=== PATIENT | female | born 1980 | race Caucasian/White ===

== ENCOUNTER 2020-06-10 16:50 | Outpatient (CLI) | payer OTHER, SELFPAY ==
[2020-06-10 17:31] LABS: Basophils Percent Auto 0.5 % (0.2-1.2); Eosinophils Absolute Auto 0.2 K/mm3 (0-0.3); Eosinophils Percent Auto 3.5 % (0-4.4); Hematocrit 38.2 % (37.0-47.0); Hemoglobin 12.6 g/dL (12.0-15.0); Immature Granulocyte Absolute 0.01 K/mm3 (0.00-0.031); Immature Granulocyte Percent A 0.2 % (0-0.5); Lymphocytes Absolute Auto 1.74 K/mm3 (0.9-3.2); Lymphocytes Percent Auto 28.1 % (18.3-44.2); Mean Corpuscular Hemoglobin 30.1 pg (26-34); Mean Corpuscular Volume 91.4 fl (80-100); Mean Platelet Volume 9.6 fl (7.4-10.4); Monocytes Absolute Auto 0.5 K/mm3 (0.1-0.6); Monocytes Percent Auto 8.4 % (2.6-8.5); Neutrophils Absolute Auto 3.7 K/mm3 (1.3-6.7); Neutrophils Percent Auto 59.3 % (45.5-73.1); Platelet Count Result 264 k/mm3 (150-375); Red Blood Count 4.18 M/mm3 (4.2-5.4); Red Cell Distribution Width 12.5 % (11.5-14.5); White Blood Count 6.2 K/mm3 (4.5-10.0)
[2020-06-10 17:37] LABS: Add Urine Microscopic? YES; Appearance Urine Cloudy (Clear); Bacteria Urine 4+ /hpf; Bilirubin Urine Negative (Negative); Blood Urine 3+ (Negative); Color Urine Yellow (Yellow); Glucose Urine UA Negative (Negative); Ketones Urine Negative (Negative); Leukocyte Esterase Ur 2+ LEU/UL (NEGATIVE); Mucus Urine Rare /lpf; Nitrate Urine Negative (Negative); Protein Urine Negative (Negative); Specific Grav Ur 1.015 (1.001-1.035); Squamous Epithelial Cell Urine Many /hpf (Few); Urobilinogen Urine Negative mg/dL (<2.0); WBC Urine 21-30 /hpf (0-3)
[2020-06-10 19:30] LABS: Hepatitis B Surface Antigen Negative (Negative); Rubella IgG Antibody 10.5 IU/ML
[2020-06-10 19:45] LABS: Hepatitis C Virus Antibody Negative (Negative)
[2020-06-10 20:29] LABS: Vitamin D 25 Hydroxy 42.4 ng/mL
[2020-06-11 09:03] LABS: Rapid Plasma Reagin Non-Reactive (NonReactive)
[2020-06-17 04:03] LABS: Hematocrit 41.8 % (35.0-45.0); Hemoglobin 12.9 g/dL (11.7-15.5); MCH 30.6 pg (27.0-33.0); MCV 99.3 FL (80.0-100.0); RDW 14.9 % (11.0-15.0); Red Blood Cell Count 4.21 Mill/uL (3.80-5.10)
[2020-06-23 18:27] LABS: CF Result NEGATIVE (NEGATIVE)
== END 2020-06-10 16:51 | disposition home or self-care (01) ==
LOC: ANHLAB 16:55
PROVIDERS: Visit Provider Student in an Organized Health Care Education/Training Program
DX: Z34.90 Encounter for supervision of normal pregnancy, unspecified, unspecified trimester (principal); N91.2 Amenorrhea, unspecified
CPT/HCPCS: 36415; 81001; 81220; 82306; 83021; 84144; 84443; 85025; 86592; 86762; 86787; 86803; 86850; 86900; 86901; 87086; 87340

== ENCOUNTER 2020-06-15 09:54 | Outpatient (CLI) | payer OTHER, SELFPAY ==
--- NOTE | ~2020-06-15 | US_ITS ---
EXAMINATION: US OB <=14 wk fetus w TV DATE: 06/15/2020 10:19 INDICATION: Gestational dating TECHNIQUE: Real-time transabdominal and transvaginal obstetric ultrasound. FINDINGS: No prior studies for comparison. The uterus measures 9.1 x 5.3 x 5.5 cm. There is an intrauterine gestational sac, with pole caitlyn ntified. The crown rump length measures 0.49 cm, which correlates with a estimated gestational age o f 6 weeks 1 day. heart tones are identified measuring 121 bpm. Right ovary is normal measurin g 4.2 x 1.6 x 2 cm. Left ovary measures 3.3 x 2.9 x 2.7 cm. There is a 2.5 cm left ovarian cyst. IMPRESSION: 1. SL IUP with an EGA of 6 weeks, 1 days (EDC by current ultrasound of 02/07/2021). 2: 2.5 cm corpus luteal cyst of the left ovary. Reviewed, dictated and finalized at location A. IMPRESSION: 1. SL IUP with an EGA of 6 weeks, 1 days (EDC by current ultrasound of ). 2: 2.5 cm corpus luteal cyst of the left ovary.
== END 2020-06-15 09:55 | disposition home or self-care (01) ==
PROVIDERS: PCP Student in an Organized Health Care Education/Training Program; Visit Provider Student in an Organized Health Care Education/Training Program
DX: Z34.90 Encounter for supervision of normal pregnancy, unspecified, unspecified trimester (principal); Z3A.01 Less than 8 weeks gestation of pregnancy; N83.12 Corpus luteum cyst of left ovary
CPT/HCPCS: 76801; 76817

== ENCOUNTER 2020-06-23 13:03 | Outpatient (CLI) | payer OTHER, SELFPAY ==
--- NOTE | ~2020-06-23 | US_ITS ---
EXAMINATION: US OB <=14 wk fetus w TV DATE: 06/23/2020 14:06 INDICATION: Supervision of normal during first trimester TECHNIQUE: Real-time pelvic ultrasound utilizing both a transvaginal and transabdominal probe was pe rformed. The interpreting radiologist was not present for the study. COMPARISON: 06/15/2020 FINDINGS: The uterus measures 10.6 x 5.7 x 4.3 cm. There is an intrauterine gestational sac. A yolk sac and fe [place] pole are identified. The crown rump length measures 4 mm, which correlates with an estimated gest ational age of 6 weeks and 1 days. heart motion is identified measuring 89 beats per minute (bp m) by M-mode Doppler. 2.9 x 2.8 x 0.9 cm hypoechoic likely subchorionic hematoma along the caudal mar gin of the right inferior margin of the gestational sac. The right ovary measures 4.2 x 2.0 x 2.1 cm. The left ovary measures 2.8 x 2.9 x 2.8 cm. 2.6 cm anech oic left ovarian cyst. Vascular flow identified on color Doppler both ovaries. There is no free fluid in the pelvis. IMPRESSION: 1. Single living fetus with heart rate of 89 bpm. 2. Artemus-rump length of 4 mm yielding estimated gestational age by ultrasound of 6 weeks 1 day(s) +/- 4 day(s) with ultrasound estimated date of delivery (SANDRA) of 02/15/2021. This is discordant with the prior ultrasound estimated date of delivery of 02/07/2021. 3. Subchorionic hematoma measuring 2.9 x 2.8 x 0.9 Reviewed, dictated and finalized at location A. IMPRESSION: 1. Single living fetus with heart rate of 89 bpm. 2. Artemus-rump length of 4 mm yielding estimated gestational age by ultrasound o f 6 weeks 1 day(s) +/- 4 day(s) with ultrasound estimated date of delivery (SANDRA ) of 02/15/2021. This is discordant with the prior ultrasound estimated date of delivery of 02/07/2021. 3. Subchorionic hematoma measuring 2.9 x 2.8 x 0.9
--- NOTE | ~2020-06-23 | US_ITS ---
EXAMINATION: US breast RT limited HISTORY: Palpable lump in the upper outer quadrant of the right breast TECHNIQUE: Limited right breast ultrasound is performed in the area of clinical concern. FINDINGS: There is a 3 mm cyst at the 11:00 location 5 cm from the nipple. Dense breast tissue is not ed in the area of clinical concern. No suspicious cystic or solid mass is identified. IMPRESSION: No suspicious sonographic correlate is identified for the reported palpable abnormality of concern. F urther evaluation at this time should be based on clinical assessment. Continued follow-up physical e xamination is recommended. BI-RADS Category 2: Benign finding(s). Reviewed, dictated and finalized at location A. IMPRESSION: No suspicious sonographic correlate is identified for the reported palpable abn ormality of concern. Further evaluation at this time should be based on clinica l assessment. Continued follow-up physical examination is recommended. BI-RADS Category 2: Benign finding(s).
== END 2020-06-23 13:04 | disposition home or self-care (01) ==
PROVIDERS: Visit Provider Student in an Organized Health Care Education/Training Program
DX: Z34.90 Encounter for supervision of normal pregnancy, unspecified, unspecified trimester (principal); N63.11 Unspecified lump in the right breast, upper outer quadrant
CPT/HCPCS: 76642; 76801; 76817

== ENCOUNTER 2020-06-30 08:10 | Outpatient (CLI) | payer OTHER, SELFPAY ==
--- NOTE | ~2020-06-30 | US_ITS ---
EXAMINATION: US OB <=14 wk fetus w TV DATE: 06/30/2020 08:47 INDICATION: Threatened TECHNIQUE: Real-time pelvic transabdominal and transvaginal ultrasound was performed. COMPARISON: 06/23/2020 FINDINGS: The uterus measures 8.2 x 4.8 cm. There is an intrauterine gestational sac. A yolk sac is identified. heart motion is identified measuring 123 beats per minute (bpm) by M-mode Doppler. The crown rump length measures 5 mm , which correlates with an estimated gestational age of 6 w eeks and 1 day(s) (+/-) 4 day(s). The right ovary measures 2.7 x 1.4 cm. The left ovary measures 2.7 x 2.8 cm and contains a cyst or co rpus luteum. There is no free fluid in the pelvis. IMPRESSION: 1. Live intrauterine with an estimated gestational age of 6 weeks and 1 day(s) (+/-) 4 day( s) and an estimated delivery date of 02/22/2021. Of note, crown-rump length one week ago was 4 mm and y ielded the same estimated gestational age. Reviewed, dictated and finalized at location A. IMPRESSION: 1. Live intrauterine with an estimated gestational age of 6 weeks and 1 day(s) (+/-) 4 day(s) and an estimated delivery date of 02/22/2021. Of note, c rown-rump length one week ago was 4 mm and yielded the same estimated gestation al age.
== END 2020-06-30 08:11 | disposition home or self-care (01) ==
PROVIDERS: Visit Provider Student in an Organized Health Care Education/Training Program
DX: O20.0 Threatened abortion (principal); Z3A.01 Less than 8 weeks gestation of pregnancy
CPT/HCPCS: 76801; 76817

== ENCOUNTER 2020-07-09 01:55 | Day surgery (SDC) | payer OTHER, SELFPAY ==
[2020-07-08 12:55] VITALS: BMI 31.9
--- NOTE | 2020-07-09 08:03 | PM.IMHP ---
H&P: HPI History of Present Illness Date/Time: 07/09/20 08:03 The patient is a 40 year old LMP 04/17/20 who was diagnosed with a missed measuring 6 week size on 07/08/20. Management options were discussed with patient including expectant, medical, and surgical. Patient desires surgical management. She reports feeling well today without complaints. Denies any bleeding or cramping. Chief complaint: Missed Narrative: Oscar Adams is a 40 year old female Review of Systems Review of Systems: All systems reviewed & are unremarkable except as noted in HPI and below Constitutional: Constitutional: Reports as per HPI, Reports no additional constitutional complaints, Denies chills, Denies fever(s), Denies headache(s) and Denies night sweats Eyes: Eyes: Reports as per HPI and Reports no additional eye complaints ENT: Reports system reviewed and no additional complaints, except as documented, Reports as per HPI, Reports Normal hearing present and Denies headache(s) Cardiovascular: Cardiovascular: Reports as per HPI, Reports no additional cardiovascular complaints, Denies chest pain and Denies dyspnea Respiratory: Respiratory: Reports as per HPI, Reports no additional respiratory complaints, Denies cough and Denies dyspnea Gastrointestinal: Gastrointestinal: Reports as per HPI, Reports no additional gastrointestinal complaints, Denies abdominal pain, Denies change in bowel habits, Denies change in stool character, Denies nausea and Denies vomiting Genitourinary: Genitourinary: Reports no additional female genitourinary complaints, Reports as per HPI, Denies abnormal vaginal bleeding, Denies genital lesions, Denies hot flashes, Denies dyspareunia, Denies pelvic pain, Denies sexual dysfunction, Denies urinary incontinence, Denies vaginal discharge, Denies vaginal dryness and Denies vaginal odor Musculoskeletal: Musculoskeletal: Reports no additional musculoskeletal complaints and Reports as per HPI Integumentary/Breasts: Skin/Breast: Reports system reviewed and no additional complaints, except as docu, Reports as per HPI, Denies breast pain and Denies nipple discharge Neurologic: Reports system reviewed and no additional complaints, except as documented, Reports as per HPI, Reports Normal hearing present and Denies headache(s) Psychiatric: Psychiatric: Reports no additional psychiatric complaints, Reports as per HPI, Denies anxiety and Denies depression Endocrine: Endocrine: Reports no additional endocrine complaints and Reports as per HPI Hematologic/Lymphatic: Hematologic/Lymphatic: Reports no additional hematologic/lymphatic complaints and Reports as per HPI Allergic/Immunologic: Allergic/Immunologic: Reports no additional allergic/immunologic complaints and Reports as per HPI PMFSH Past Medical History Medical History Arthritis, rheumatoid ASCUS of cervix with negative high risk HPV Cutaneous lupus erythematosus Depression Lichen planopilaris Surgical History Surgical History History of colposcopy [place] teeth removed Family History Family History Mother Diabetes mellitus Hypertension Hyperlipidemia Grandparent Diabetes mellitus Acute myocardial infarction Cerebrovascular accident Other Diabetes mellitus Cerebrovascular accident Social History Social History Smoking status: Never smoker Alcohol intake: former Substance use: never Spiritual care concerns: No Meds Home Medications and Allergies Home Medications Medication Instructions Recorded Confirmed Type abatacept 125 mg/mL subcutaneous 125 mg SUB-Q WEEKLY 06/10/20 07/09/20 History syringe hydroxychloroquine 200 mg tablet 200 mg PO DAILY 06/10/20 07/09/20 History prenat.vits,rosemary,ken-caol-ipabx 1 tablet P
[2020-07-09 11:55] VITALS: BP 123/63; PULSE 78; RESP 18; TEMP 37.2; O2SAT 100
[2020-07-09] MEDS: LACTATED RINGERS 1,000 ML 30 ML IV CONT ×3 (12:22→14:20)
[2020-07-09] MEDS: ACETAMINOPHEN 500 MG TABLET 1000 MG PO (12:28)
[2020-07-09 12:35] VITALS: BMI 37.3
--- NOTE | 2020-07-09 12:45 | P.PNAN_ITS ---
Anes - Initial Pre Proc Eval Procedure: Operation Date: 07/09/20 13:30 Proposed Procedures p Suction Dilation and Curettage - Nery Lua MD Date/Time: 07/09/20 12:45 Surgeon: Nery Lua MD Pre Op Diagnosis: Missed Patient Data Age: 40 Gender: F Height: 5 ft 8 in Weight: 111.2 kg Last Vital Signs Temp 37.2 C 07/09/20 11:55 Pulse 78 07/09/20 11:55 Resp 18 07/09/20 11:55 BP 123/63 07/09/20 11:55 Pulse Ox 100 07/09/20 11:55 Allergies Allergy/AdvReac Type Severity Reaction Status Date / Time No Known Allergies Allergy Verified 07/09/20 11:54 Home Medications Medication Instructions Recorded Confirmed Type abatacept 125 mg/mL subcutaneous 125 mg SUB-Q WEEKLY 06/10/20 07/09/20 History syringe hydroxychloroquine 200 mg tablet 200 mg PO DAILY 06/10/20 07/09/20 History prenat.vits,rosemary,sye-dnbf-ihnes 1 tablet PO DAILY 06/10/20 07/09/20 History Laboratory Tests 07/09/20 12:17 Beta HCG, Quant Pending Patient hx anesthesia problems: none Family hx anesthesia problems: none PMFSH Past Medical History Medical History Arthritis, rheumatoid ASCUS of cervix with negative high risk HPV Cutaneous lupus erythematosus Depression Lichen planopilaris Surgical History Surgical History History of colposcopy [place] teeth removed Family History Family History Mother Diabetes mellitus Hypertension Hyperlipidemia Grandparent Diabetes mellitus Acute myocardial infarction Cerebrovascular accident Other Diabetes mellitus Cerebrovascular accident Social History Social History Smoking status: Never smoker Alcohol intake: former Substance use: never Spiritual care concerns: No Anes - Eval Final PreProcedure Day of Procedure 07/09/20 12:45 Patient weight: obese Heart: regular rate and rhythm Lungs: clear to auscultation Airway: Mallampati scale class II Neurological: alert and oriented Last oral intake: >/= 8 hours ASA classification: II Emergent: no Anesthetic plan: proceed Anesthesia type and monitoring: general GIVS and standard monitoring Informed Consent: The patient's anesthetic plan and its attendant risks and benefits were discussed with the patient/family/POA. Questions were solicited and answers provided to the satisfaction of the patient/family/POA.
--- NOTE | 2020-07-09 13:13 | WPDHPUPDATE1 ---
History and Physical Update Update Date/Time: 07/09/20 13:13 History and Physical has been reviewed, including an updated exam of the patient. There are NO changes in the patient's condition. Risks, benefits, and alternatives have been discussed and questions answered. Patient agrees to proceed with procedure.
--- NOTE | 2020-07-09 13:41 | SUR.PREOP ---
1145; spouse in room with pt
[2020-07-09 13:57] VITALS: BP 145/71; PULSE 91; RESP 20; O2SAT 99
--- NOTE | 2020-07-09 14:02 | PM.PROC ---
Procedure Note - Detailed Date of procedure: 07/09/20 Pre-op diagnosis: Missed Post-op diagnosis: same Procedure performed: The patient was taken to the operating room where she self transferred to the operating room table. Patient was placed in dorsal supine position. Anesthesia was administered and found to be adequate. The patient was repositioned in dorsal lithotomy position with the use of Shaun stirrups. The patient was prepped and draped in the usual sterile fashion. A red rubber catheter was used to drain the bladder of 100 cc of yellow urine. A bivalve speculum was inserted into vagina. The cervix was well visualized. The anterior lip of the cervix was grasped with a single-tooth tenaculum. A paracervical block was performed with 1% lidocaine. 5 cc of lidocaine was administered on both sides for a total of 10 cc. The cervix was then serially dilated to accommodate a size 7 rigid curette. The curette was introduced into the endometrial cavity and connected to the suction tubing. The suction aspirator was then activated and the curette was gently rotated clearing the cavity of all products of conception. Three passes with the rigid curette were made. A Fernandez curette was then introduced into the endometrial cavity and all quadrants of the cavity were explored. A gritty texture was noted and the procedure was deemed complete. The tenaculum was removed. The tenaculum puncture sites were noted to be moderately bleeding. These sites were made hemostatic with two figure of eight sutures using 3-0 vicryl. Excellent hemostasis was noted. The vagina was then cleansed and dried and the speculum was removed. The remainder the patient was cleansed and dried. She was taken out of the dorsal lithotomy position and awakened from anesthesia without difficulty. She was transferred to recovery room in stable condition. All sponge and instrument counts were correct at the end of the procedure. The evacuated uterine contents were inspected and prepared to be sent to pathology for chromosome analysis. The patient tolerated the procedure well. Anesthesia: MAC Surgeon: Nery Lua MD Estimated blood loss (mL): 20 IV fluids (mL): 700 Urine output (mL): 100 Drains: No Packing: No Pathology: yes (products of conception) Complications: No immediate complications Condition: stable Disposition: same day Findings: Intraoperative findings: minimal amount of products of conception
[2020-07-09 14:25] VITALS: BP 137/67; PULSE 83; RESP 20; O2SAT 100
[2020-07-09] MEDS: RHO(D) IMMUNE GLOBULIN 300 MCG SYRINGE IM (14:54)
== END 2020-07-09 15:05 | disposition home or self-care (01) ==
PROVIDERS: Visit Provider Student in an Organized Health Care Education/Training Program
PROC: (CPT 59820; principal; 2020-07-09 13:30)
DX: O02.1 Missed abortion (principal); R87.610 Atypical squamous cells of undetermined significance on cytologic smear of cervix (ASC-US); L93.1 Subacute cutaneous lupus erythematosus; F32.9 Major depressive disorder, single episode, unspecified; L66.1 Lichen planopilaris; E66.9 Obesity, unspecified; Z68.37 Body mass index [BMI] 37.0-37.9, adult; Z3A.01 Less than 8 weeks gestation of pregnancy
CPT/HCPCS: 59820; 36415; 84702; 85461; 88305; 90384; A9270; J1100; J2250; J2405; J2704; J2790; J3010; J7120

== ENCOUNTER 2020-12-22 10:07 | Outpatient (CLI) | payer OTHER, SELFPAY ==
[2020-12-22 10:34] LABS: Basophils Percent Auto 0.4 % (0.2-1.2); Eosinophils Absolute Auto 0.2 K/mm3 (0-0.3); Eosinophils Percent Auto 4.6 % (0-4.4); Hematocrit 34.5 % (37.0-47.0); Hemoglobin 10.9 g/dL (12.0-15.0); Immature Granulocyte Absolute 0.02 K/mm3 (0.00-0.031); Immature Granulocyte Percent A 0.4 % (0-0.5); Lymphocytes Absolute Auto 1.91 K/mm3 (0.9-3.2); Lymphocytes Percent Auto 36.6 % (18.3-44.2); Mean Corpuscular HGB Conc 31.6 g/dl (32-36); Mean Corpuscular Hemoglobin 27.3 pg (26-34); Mean Corpuscular Volume 86.5 fl (80-100); Mean Platelet Volume 9.1 fl (7.4-10.4); Monocytes Absolute Auto 0.5 K/mm3 (0.1-0.6); Monocytes Percent Auto 9.8 % (2.6-8.5); Neutrophils Absolute Auto 2.5 K/mm3 (1.3-6.7); Neutrophils Percent Auto 48.2 % (45.5-73.1); Platelet Count Result 355 k/mm3 (150-375); Red Blood Count 3.99 M/mm3 (4.2-5.4); Red Cell Distribution Width 13.5 % (11.5-14.5); White Blood Count 5.2 K/mm3 (4.5-10.0)
[2020-12-22 10:49] LABS: Alanine Aminotransferase 14 U/L (4-35); Albumin Level 4.4 g/dL (3.5-5.1); Alkaline Phosphatase 53 U/L (38-126); Anion Gap 6 mmol/L (8-16); Aspartate Amino Transferase 22 U/L (14-36); Bilirubin,Total 0.1 mg/dL (0.2-1.3); Blood Urea Nitrogen 8 mg/dL (7-17); CRP < 0.5 mg/dL (<1.0); Carbon Dioxide 28 mmol/L (22-30); Chloride 106 mmol/L (98-107); Estimated Glomerular Filt Rate > 60; Glucose 96 mg/dL (65-105); Potassium 4.1 mmol/L (3.4-5.0); Sodium 140 mmol/L (137-145)
[2020-12-22 11:46] LABS: Erythrocyte Sedimentation Rate 36 mm/hr (0-20)
[2020-12-25 22:07] LABS: NIL 0.02 IU/mL; Quantiferon TB Plus, 1T NEGATIVE (NEGATIVE); TB2-NIL 0.01 IU/mL
[2020-12-26 15:42] LABS: SM Antibody <1.0; SM/RNP Antibody <1.0
[2020-12-30 03:12] LABS: Cryoglobulin, QL Negative (Negative)
== END 2020-12-22 10:08 | disposition home or self-care (01) ==
LOC: ANHLAB 10:11
PROVIDERS: PCP Internal Medicine
DX: Z51.81 Encounter for therapeutic drug level monitoring (principal); Z79.899 Other long term (current) drug therapy
CPT/HCPCS: 36415; 80053; 82595; 85025; 85652; 86140; 86235; 86480

== ENCOUNTER 2021-02-08 07:59 | Outpatient (CLI) | payer OTHER, SELFPAY ==
--- NOTE | ~2021-02-08 | CT_ITS ---
EXAMINATION: CT LE RT w con DATE: 02/08/2021 08:48 INDICATION: Right lower leg mass. TECHNIQUE: Computed tomography (CT) of the right lower leg was performed with 100 mL Omnipaque 350 in travenous contrast. Automated exposure control and iterative reconstruction technique were employed. The dose-length product was 67.01 mGy-cm. COMPARISON: None FINDINGS: Bone alignment is normal. No fracture. The muscles are normal. There is no abnormal mass. IMPRESSION: 1. No abnormal mass in the patient's area of concern. Reviewed, dictated and finalized at location A.
[2021-02-08 09:30] LABS: Cholesterol 161 mg/dL (0-200); HDL Direct 61 mg/dL; Triglycerides 94 mg/dL (<150)
[2021-02-08 09:41] LABS: LDL Cholesterol Direct 82 mg/dL
[2021-02-08 09:47] LABS: Iron 65 ug/dL (37-170)
[2021-02-08 09:57] LABS: Percent Iron Saturation 19 % (20-50)
== END 2021-02-08 08:00 | disposition home or self-care (01) ==
DX: R22.41 Localized swelling, mass and lump, right lower limb (principal); D64.9 Anemia, unspecified
CPT/HCPCS: 36415; 73701; 80061; 82607; 82728; 82746; 83540; 83550; Q9967

== ENCOUNTER 2021-09-19 12:59 | Outpatient (CLI) | payer OTHER, SELFPAY ==
[2021-09-19 14:16] LABS: Thyroid Stimulating Hormone Reflex 0.677 uIU/mL (0.465-4.68)
== END 2021-09-19 13:00 | disposition home or self-care (01) ==
PROVIDERS: Visit Provider Internal Medicine
DX: R00.2 Palpitations (principal)
CPT/HCPCS: 36415; 84443

== ENCOUNTER 2021-10-12 14:30 | Outpatient (CLI) | payer OTHER, SELFPAY ==
--- NOTE | 2021-10-12 | ECHO_ITS ---
Patient Info Name: Oscar Adams Age: 41 years : 1980 Gender: Female Ht: 68 in Wt: 200 lbs BSA: 2.11 m2 HR: 85 bpm BP: 139 / 81 mmHg Technical Quality: Good Exam Date: 10/12/2021 3:13 PM Exam Location: [facility] Patient Status: Outpatient Admit Date: 10/12/2021 Staff Ordering Physician: PHYSICIAN NOT ON STAFF, NONSTAFF Angle Shearer: Jocelynn Field RDCS Attending Provider: PHYSICIAN NOT ON STAFF, NONSTAFF Exam Type: CA echo doppler color flow Study Info Indications - palpitations Complete two-dimensional, color flow and Doppler transthoracic echocardiogram is performed. Summary 1. Complete two-dimensional, color flow and Doppler transthoracic echocardiogram is performed. 2. Left ventricular chamber dimension is normal. 3. Left ventricular systolic function is normal, estimated at 60-65%. 4. The left ventricular diastolic function is grade I diastolic dysfunction. 5. There is trace tricuspid valve regurgitation. 6. No pulmonary hypertension, estimated pulmonary arterial systolic pressure is 37 mmHg. Left Ventricle Tissue doppler is not performed. Left ventricular chamber dimension is normal. Left ventricular systolic function is normal, estimated at 60-65%. The left ventricular diastolic function is grade I diastolic dysfunction. Right Ventricle Right ventricular chamber dimension is normal. Right ventricular systolic function is normal. Left Atria Left atrial chamber dimension is normal. Right Atria Right atrial chamber dimension is normal. Aortic Valve The aortic valve is trileaflet. There is no aortic valve stenosis. There is no aortic valve regurgitation. Pulmonic Valve There is no pulmonic regurgitation. Mitral Valve There is no mitral valve stenosis. There is no mitral valve regurgitation. Tricuspid Valve There is trace tricuspid valve regurgitation. No pulmonary hypertension, estimated pulmonary arterial systolic pressure is 37 mmHg. Pericardium/Pleural There is no pericardial effusion. Inferior Vena Cava Normal inferior vena cava with >50% collapse upon inspiration consistent with normal right atrial pressure, 5 mmHg. Aorta The aortic root size at the sinus of Valsalva is normal. Left Ventricular Outflow Tract Name Value Normal LVOT 2D LVOT Diameter 2.1 cm LVOT Doppler LVOT Peak Gradient 5 mmHg LVOT Mean Gradient 3 mmHg LVOT VTI 20 cm LVOT VTI/AV VTI Ratio 0.8 LVOT Stroke Volume 70 ml LVOT CO 16.8 l/min LVOT CI 8.0 l/min/m2 Pulmonic Valve Name Value Normal PV Doppler PV Peak Gradient 5 mmHg Mitral Valve
[2021-10-12 14:53] LABS: Basophils Percent Auto 0.4 % (0.2-1.2); Eosinophils Absolute Auto 0.2 K/mm3 (0-0.3); Eosinophils Percent Auto 3.6 % (0-4.4); Hematocrit 37.9 % (37.0-47.0); Hemoglobin 12.6 g/dL (12.0-15.0); Immature Granulocyte Absolute 0.01 K/mm3 (0.00-0.031); Immature Granulocyte Percent A 0.2 % (0-0.5); Lymphocytes Percent Auto 30.5 % (18.3-44.2); Mean Corpuscular HGB Conc 33.2 g/dl (32-36); Mean Corpuscular Hemoglobin 29.2 pg (26-34); Mean Corpuscular Volume 87.9 fl (80-100); Mean Platelet Volume 9.2 fl (7.4-10.4); Monocytes Absolute Auto 0.5 K/mm3 (0.1-0.6); Monocytes Percent Auto 9.4 % (2.6-8.5); Neutrophils Absolute Auto 2.9 K/mm3 (1.3-6.7); Neutrophils Percent Auto 55.9 % (45.5-73.1); Platelet Count Result 255 k/mm3 (150-375); Red Blood Count 4.31 M/mm3 (4.2-5.4); White Blood Count 5.2 K/mm3 (4.5-10.0)
[2021-10-12 15:00] LABS: Alanine Aminotransferase 15 U/L (4-35); Albumin Level 4.3 g/dL (3.5-5.1); Alkaline Phosphatase 57 U/L (38-126); Anion Gap 11 mmol/L (8-16); Aspartate Amino Transferase 24 U/L (14-36); Bilirubin,Total 0.3 mg/dL (0.2-1.3); Blood Urea Nitrogen 11 mg/dL (7-17); Calcium 8.9 mg/dL (8.4-10.2); Carbon Dioxide 25 mmol/L (22-30); Chloride 102 mmol/L (98-107); Estimated Glomerular Filt Rate > 60; Glucose 96 mg/dL (65-110); Potassium 3.7 mmol/L (3.4-5.0); Sodium 138 mmol/L (137-145)
== END 2021-10-12 14:31 | disposition home or self-care (01) ==
LOC: ANHCARD 14:34
DX: R00.2 Palpitations (principal)
CPT/HCPCS: 36415; 80053; 85025; 93306

== ENCOUNTER 2021-12-29 10:02 | Outpatient (CLI) | payer OTHER, SELFPAY ==
--- NOTE | 2022-01-03 17:08 | WPDHOMESLEEP ---
Sleep Study - Home Unattended Date of Study: 12/29/21 Ordering Provider: Joseph Hirsch DO Interpreting Provider: Juli Martinez DO Home Sleep Study Type: Watch PAT Height: 1.73 m Weight: 92.986 kg Body Mass Index: 31.1 Neck Circumference (inches): 15.25 [place]: 13 Reason for Sleep Study Evaluation for sleep apnea due to heart palpitations. Sleep History The patient is a 41-year-old female with depression, ADD, cutaneous lupus erythematosus, lichen plano pilaris, ASCUS of cervix and rheumatoid arthritis that had a home sleep test ordered by her hairspring cutter due to snoring and daytime sleepiness. The patient rarely awakens from sleep short of breath. She rarely awakens at night with heartburn, belching or cough. She frequently snores and occasionally is loud enough others complain. She constantly has trouble sleeping when she has a cold. She denies waking up gasping for air throughout the night. She denies having breathing problems at night observed by herself or others. She occasionally sweats excessively at night. She frequently has heart palpitations or irregular heartbeats during the night. She occasionally falls asleep during the day but rarely falls asleep while driving. She occasionally has trouble at work due to sleepiness. She denies sleep paralysis, cataplexy and hypnagogic / hypnopompic hallucinations. She denies having nightmares. She occasionally has thoughts racing through her mind. She occasionally feels sad or depressed. She rarely has anxiety. She frequently has muscular tension. She frequently notices parts of her body jerk. She frequently kicks during the night. She frequently has crawling and aching feelings in her legs as well as leg pain during the night. She constantly grinds her teeth during sleep and occasionally awakens with morning jaw pain. She is frequently bothered by pain during the day and occasionally awakened by pain during the night. She constantly wakes up feeling stiff in the morning with sore achy muscles. She frequently wakes up with pain in the neck, spine and other joints. She goes to bed at 10:00 p.m. on weekdays and between 10 30 and 11:00 p.m. on the weekends. It takes her about an hour to fall asleep. She wakes up 3-4 times throughout the night. When she awakens, she will you use the restroom or try to reset ill. She can fall back asleep within minutes. She wakes up between 530 and 6:00 a.m. on weekdays and 8:30 a.m. on the weekends. She typically gets 6-8 hours of sleep per night. She currently lives with her and 2 boys. She does not consume any caffeinated beverages within 2 hours of bedtime. She does not engage in physical exercise before bedtime. She will read before falling asleep. She does not take naps in the afternoon or the evening. She drinks 3-4 caffeinated sodas per day. She drinks 2-3 glasses of wine per month. She denies tobacco and recreational drug use. [facility] Past Medical History Medical History Arthritis, rheumatoid ASCUS of cervix with negative high risk HPV Cutaneous lupus erythematosus Depression History of miscarriage 06/2020 Lichen planopilaris Surgical History Surgical History H/O dilation and curettage 2019 History of colposcopy [place] teeth removed Family History Family History Mother Diabetes mellitus Hypertension Hyperlipidemia Grandparent Diabetes mellitus Acute myocardial infarction Cerebrovascular accident Other Diabetes mellitus Cerebrovascular accident Social History Social History Smoking status: Never smoker Alcohol intake: former Alcohol use details: since Substance use: never Spiritual care concerns: No Medications Home Medications Medicatio
[2022-01-03 17:20] VITALS: BMI 31.1
== END 2021-12-30 11:55 | disposition home or self-care (01) ==
LOC: ANHCSM 10:03
PROVIDERS: Visit Provider Internal Medicine Cardiovascular Disease
DX: G47.10 Hypersomnia, unspecified (principal); G47.30 Sleep apnea, unspecified
CPT/HCPCS: 95800

== ENCOUNTER → 2022-04-18 08:24 | Outpatient (CLI) | payer SELFPAY ==
--- NOTE | ~2022-04-18 | MR_ITS ---
EXAMINATION: MR lower leg RT wo con DATE: 04/18/2022 09:48 INDICATION: Neoplasm of uncertain behavior of the skin. TECHNIQUE: Magnetic resonance imaging (MRI) of the right lower leg was performed without intravenous contrast. Sequences included axial, sagittal and coronal T1-weighted FSE and fluid sensitive FSE STIR and axial T1-weighted FS FSE. COMPARISON: CT dated 02/08/2021 FINDINGS: Bone alignment is normal with normal marrow signal throughout. No reactive edema/stress reaction, fra cture or pathologic marrow replacing process. Musculature throughout the right lower leg demonstrate appears normal with no evident atrophy or abnormal signal. The visualized portions of the tendons peggy ear normal. Ankle joint and visualized portion of the subtalar joint appear normal with physiologic a mount fluid. Minimal subcutaneous edema overlying the anterolateral margin of the tibia but without p eriostitis following the contour of the bone. No abnormal masses or fluid collections identified. Spe cifically no abnormality identified in the region of concern at on the current or prior CT study. IMPRESSION: 1. Normal study with no abnormal masses or fluid collections identified in the region of concern or t hroughout the remainder of the right lower leg. Per discussion with the [facility] [employer], the patient utilized flexion/dorsiflexion of the foot to aid in palpating the abnormality. Muscle herniations through def ects in the fascia and present as transient masses, present only with contraction of the muscle and o therwise indiscernible. If this would affect clinical management could consider directed ultrasound w ith real-time visualization with relaxation and contraction of the muscles for further evaluation. Reviewed, dictated and finalized at location A. IMPRESSION: 1. Normal study with no abnormal masses or fluid collections identified in the region of concern or throughout the remainder of the right lower leg. Per discu ssion with the [facility] [employer], the patient utilized flexion/dorsiflexion of the foot t o aid in palpating the abnormality. Muscle herniations through defects in the f ascia and present as transient masses, present only with contraction of the mus lukasz and otherwise indiscernible. If this would affect clinical management could consider directed ultrasound with real-time visualization with relaxation and contraction of the muscles for further evaluation.
== END ==
PROVIDERS: PCP Internal Medicine
DX: D48.5 Neoplasm of uncertain behavior of skin (principal)
CPT/HCPCS: 99199; 73718

== ENCOUNTER 2022-07-28 08:20 | Outpatient (CLI) | payer OTHER, SELFPAY ==
[2022-07-28 09:15] LABS: Basophils Percent Auto 0.5 % (0.2-1.2); Eosinophils Absolute Auto 0.1 K/mm3 (0-0.3); Eosinophils Percent Auto 3.3 % (0-4.4); Hematocrit 38.1 % (37.0-47.0); Hemoglobin 12.6 g/dL (12.0-15.0); Immature Granulocyte Absolute 0.01 K/mm3 (0.00-0.031); Immature Granulocyte Percent A 0.2 % (0-0.5); Lymphocytes Absolute Auto 2.38 K/mm3 (0.9-3.2); Lymphocytes Percent Auto 56.4 % (18.3-44.2); Mean Corpuscular HGB Conc 33.1 g/dl (32-36); Mean Corpuscular Hemoglobin 29.5 pg (26-34); Mean Corpuscular Volume 89.2 fl (80-100); Mean Platelet Volume 9.1 fl (7.4-10.4); Monocytes Absolute Auto 0.3 K/mm3 (0.1-0.6); Monocytes Percent Auto 7.6 % (2.6-8.5); Neutrophils Absolute Auto 1.4 K/mm3 (1.3-6.7); Platelet Count Result 271 k/mm3 (150-375); Red Blood Count 4.27 M/mm3 (4.2-5.4); Red Cell Distribution Width 12.8 % (11.5-14.5); White Blood Count 4.2 K/mm3 (4.5-10.0)
[2022-07-28 09:27] LABS: Alanine Aminotransferase 21 U/L (6-35); Albumin Level 4.3 g/dL (3.5-5.1); Alkaline Phosphatase 71 U/L (38-126); Anion Gap 11 mmol/L (8-16); Aspartate Amino Transferase 28 U/L (14-36); Bilirubin,Total 0.3 mg/dL (0.2-1.3); Blood Urea Nitrogen 7 mg/dL (7-17); Calcium 8.6 mg/dL (8.4-10.2); Carbon Dioxide 24 mmol/L (22-30); Chloride 105 mmol/L (98-107); Cholesterol 151 mg/dL (0-200); Estimated Glomerular Filt Rate > 60; Glucose 98 mg/dL (65-110); HDL Direct 43 mg/dL; Potassium 4.3 mmol/L (3.4-5.0); Sodium 140 mmol/L (137-145); Triglycerides 125 mg/dL (<150)
[2022-07-28 09:28] LABS: CRP < 0.5 mg/dL (<1.0)
[2022-07-28 09:38] LABS: LDL Cholesterol Direct 79 mg/dL
[2022-07-28 09:58] LABS: Erythrocyte Sedimentation Rate 17 mm/hr (0-20)
[2022-07-28 10:03] LABS: Thyroid Stimulating Hormone Reflex 0.723 uIU/mL (0.465-4.68)
[2022-07-28 10:32] LABS: Hepatitis B Surface Antigen Negative (Negative)
[2022-07-28 10:49] LABS: Hepatitis B Surface Anti Res Negative
[2022-07-28 10:51] LABS: Hepatitis C Virus Antibody Negative (Negative)
[2022-08-01 19:51] LABS: Hepatitis B Core Ab Total Nonreactive (Nonreactive)
== END 2022-07-28 08:21 | disposition home or self-care (01) ==
PROVIDERS: PCP Internal Medicine
DX: Z79.899 Other long term (current) drug therapy (principal)
CPT/HCPCS: 36415; 80053; 80061; 84443; 85025; 85652; 86140; 86704; 86706; 86803; 87340

== ENCOUNTER 2022-09-28 10:10 | Outpatient (CLI) | payer OTHER, SELFPAY ==
--- NOTE | ~2022-09-28 | CT_ITS ---
EXAMINATION: CTA brain DATE: 09/28/2022 10:32 INDICATION: Idiopathic stabbing headache. TECHNIQUE: Computed tomographic angiography (CTA) of the head was performed without and with 100 mL O mnipaque-350 intravenous contrast. Automated exposure control and iterative reconstruction technique were employed. The dose-length product was 1139.03 mGy-cm. Maximum intensity projection 3D reconstru ctions were created. Volume-rendered 3D reconstructions of the intracranial arteries were created by the technologist on a separate workstation. COMPARISON: None. FINDINGS: There is no intracranial hemorrhage, acute infarction, or abnormal intracranial mass lesion . The ventricles are normal in size. The paranasal sinuses are clear. The orbits are normal. The mast oid air cells are normal. The vertebral arteries are codominant. There is no significant stenosis of basilar artery or the posterior cerebral arteries. The posterior communicating arteries are normal. T here is no significant stenosis of the intracranial internal carotid arteries or anterior or middle c erebral arteries. Anterior communicating artery is normal. There is no aneurysm. IMPRESSION: 1. Normal brain. No aneurysm or significant intracranial arterial stenosis. Reviewed, dictated and finalized at location A. 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
== END 2022-09-28 10:11 | disposition home or self-care (01) ==
LOC: ANHIMG 10:12
PROVIDERS: PCP Internal Medicine; Visit Provider Internal Medicine
DX: R51.9 Headache, unspecified (principal)
CPT/HCPCS: 70496; Q9967

== ENCOUNTER 2022-12-19 08:14 | Outpatient (CLI) | payer OTHER, SELFPAY ==
[2022-12-19 09:50] LABS: Basophils Percent Auto 0.4 % (0.2-1.2); Eosinophils Absolute Auto 0.2 K/mm3 (0-0.3); Eosinophils Percent Auto 4.4 % (0-4.4); Hematocrit 40.2 % (37.0-47.0); Hemoglobin 13.4 g/dL (12.0-15.0); Immature Granulocyte Absolute 0.01 K/mm3 (0.00-0.031); Immature Granulocyte Percent A 0.2 % (0-0.5); Lymphocytes Absolute Auto 1.44 K/mm3 (0.9-3.2); Lymphocytes Percent Auto 30.3 % (18.3-44.2); Mean Corpuscular HGB Conc 33.3 g/dl (32-36); Mean Corpuscular Hemoglobin 30.6 pg (26-34); Mean Corpuscular Volume 91.8 fl (80-100); Mean Platelet Volume 9.5 fl (7.4-10.4); Monocytes Absolute Auto 0.4 K/mm3 (0.1-0.6); Monocytes Percent Auto 9.2 % (2.6-8.5); Neutrophils Absolute Auto 2.6 K/mm3 (1.3-6.7); Neutrophils Percent Auto 55.5 % (45.5-73.1); Platelet Count Result 257 k/mm3 (150-375); Red Blood Count 4.38 M/mm3 (4.2-5.4); Red Cell Distribution Width 12.7 % (11.5-14.5); White Blood Count 4.8 K/mm3 (4.5-10.0)
[2022-12-19 10:06] LABS: Alanine Aminotransferase 23 U/L (6-35); Albumin Level 4.5 g/dL (3.5-5.1); Alkaline Phosphatase 53 U/L (38-126); Anion Gap 5 mmol/L (8-16); Aspartate Amino Transferase 35 U/L (14-36); Bilirubin,Total 0.5 mg/dL (0.2-1.3); Blood Urea Nitrogen 9 mg/dL (7-17); Calcium 8.8 mg/dL (8.4-10.2); Carbon Dioxide 31 mmol/L (22-30); Chloride 104 mmol/L (98-107); Cholesterol 208 mg/dL (0-200); Estimated Glomerular Filt Rate > 60; Glucose 89 mg/dL (65-110); HDL Direct 55 mg/dL; Potassium 3.8 mmol/L (3.4-5.0); Sodium 140 mmol/L (137-145); Triglycerides 312 mg/dL (<150)
[2022-12-19 10:16] LABS: LDL Cholesterol Direct 104 mg/dL
== END 2022-12-19 08:15 | disposition home or self-care (01) ==
LOC: ANHLAB 08:17
PROVIDERS: PCP Internal Medicine
DX: Z79.899 Other long term (current) drug therapy (principal)
CPT/HCPCS: 36415; 80053; 80061; 85025

== ENCOUNTER 2023-04-25 08:23 | Outpatient (CLI) | payer OTHER, SELFPAY ==
[2023-04-25 09:55] LABS: Basophils Percent Auto 0.4 % (0.2-1.2); Eosinophils Absolute Auto 0.1 K/mm3 (0-0.3); Eosinophils Percent Auto 3.1 % (0-4.4); Hematocrit 39.3 % (37.0-47.0); Hemoglobin 12.7 g/dL (12.0-15.0); Immature Granulocyte Absolute 0.01 K/mm3 (0.00-0.031); Immature Granulocyte Percent A 0.2 % (0-0.5); Lymphocytes Absolute Auto 1.54 K/mm3 (0.9-3.2); Lymphocytes Percent Auto 34.4 % (18.3-44.2); Mean Corpuscular HGB Conc 32.3 g/dl (32-36); Mean Corpuscular Hemoglobin 30.8 pg (26-34); Mean Corpuscular Volume 95.2 fl (80-100); Mean Platelet Volume 9.6 fl (7.4-10.4); Monocytes Absolute Auto 0.5 K/mm3 (0.1-0.6); Monocytes Percent Auto 10.3 % (2.6-8.5); Neutrophils Absolute Auto 2.3 K/mm3 (1.3-6.7); Neutrophils Percent Auto 51.6 % (45.5-73.1); Platelet Count Result 231 k/mm3 (150-375); Red Blood Count 4.13 M/mm3 (4.2-5.4); Red Cell Distribution Width 13.4 % (11.5-14.5); White Blood Count 4.5 K/mm3 (4.5-10.0)
[2023-04-25 10:00] LABS: Alanine Aminotransferase 24 U/L (6-35); Albumin Level 4.4 g/dL (3.5-5.1); Alkaline Phosphatase 56 U/L (38-126); Anion Gap 5 mmol/L (8-16); Aspartate Amino Transferase 32 U/L (14-36); Bilirubin,Total 0.3 mg/dL (0.2-1.3); Blood Urea Nitrogen 8 mg/dL (7-17); Calcium 8.5 mg/dL (8.4-10.2); Carbon Dioxide 26 mmol/L (22-30); Chloride 105 mmol/L (98-107); Cholesterol 226 mg/dL (0-200); Estimated Glomerular Filt Rate > 60; Glucose 92 mg/dL (65-110); HDL Direct 65 mg/dL; Potassium 4.3 mmol/L (3.4-5.0); Sodium 136 mmol/L (137-145); Triglycerides 73 mg/dL (<150)
[2023-04-25 10:11] LABS: LDL Cholesterol Direct 117 mg/dL
== END 2023-04-25 08:24 | disposition home or self-care (01) ==
PROVIDERS: PCP Internal Medicine
DX: L93.0 Discoid lupus erythematosus (principal)
CPT/HCPCS: 36415; 80053; 80061; 85025